=== PATIENT | male | born 1970 | race Caucasian/White ===

== ENCOUNTER 2016-08-05 05:47 | Day surgery (SDC) | payer OTHER ==
[~2016-08-05 05:47] MED LIST: ceFAZolin 3 GM in D5W 100 ML IV ONE
[2016-08-05] MEDS ORDERED: LIDOCAINE 1% 5 ML SDV ONE (06:23)
[2016-08-05] MEDS ORDERED: BUPIVACAINE/EPI 0.25% 30 ML SDV ONE (07:00)
[2016-08-05] MEDS ORDERED: fentaNYL 100 MCG/2 ML INJ ONE (07:13)
[2016-08-05] MEDS ORDERED: PROPOFOL/EMULSION 500 MG/50 ML BOTTLE IV ONE (07:13)
[2016-08-05] MEDS ORDERED: LIDOCAINE 2% JELLY 5 ML TUBE ONE (07:14)
[2016-08-05] MEDS ORDERED: MIDAZOLAM 2 MG/2 ML VIAL ONE (07:16)
[2016-08-05] MEDS ORDERED: LIDOCAINE 2% 5 ML SDV ONE (07:19)
[2016-08-05] MEDS ORDERED: LIDOCAINE 2% 100 MG/5 ML SYR IVP ONE (07:27)
[2016-08-05] MEDS ORDERED: DEXAMETHASONE 4 MG/ML VIAL ONE ×2 (07:40)
[2016-08-05] MEDS ORDERED: ONDANSETRON 4 MG/2 ML VIAL ONE (07:40)
[2016-08-05] MEDS ORDERED: ceFAZolin 3 GM in D5W 100 ML IV ONE (08:00)
[2016-08-05] MEDS ORDERED: PROPOFOL 200 MG/20 ML VIAL ONE (08:11)
[2016-08-05] MEDS ORDERED: OXYCODONE/APAP 5/325 TAB ONE (08:58)
--- NOTE | 2016-08-05 09:30 | GOP ---
DATE OF OPERATION: 08/05/2016 SURGEON: Leonard Casas MD MACHINE FEATHEREDGER AND REDUCER: Corey Beasley. ANESTHESIA: General. ANESTHESIOLOGIST: Dr. Zambrano. PREOPERATIVE DIAGNOSIS: 1. Medical meniscus tear, right knee. 2. Patellofemoral chondromalacia, right knee. POSTOPERATIVE DIAGNOSIS: 1. Medical meniscus tear, right knee. 2. Patellofemoral chondromalacia, right knee. PROCEDURE PERFORMED: 1. Right knee arthroscopy with partial medial meniscectomy. 2. Patellofemoral chondroplasty, right knee. FINDINGS: INDICATIONS: This is a 45-year-old male who injured his knee resulting in the above diagnosis. He has failed nonoperative treatment, and is being admitted for surgical care. DESCRIPTION OF PROCEDURE: After an adequate general anesthetic was obtained, exam under anesthesia revealed stable Zohra. There was no varus, valgus or posterolateral laxity present. Pivot shift stable. The patient's right lower extremity was placed in the leg holding device with adequate padding, and was prepped and draped in the usual sterile fashion. The limb was exsanguinated with the Esmarch, a nd the tourniquet elevated to 300 mmHg pressure. The standard superolateral, anteromedial and anterolateral arthroscopic portals were established wit h an 11 blade. A 4 mm 30-degree arthroscope was introduced through the anterolateral portal, and a systematic examination of the knee was carried out. Suprapatellar pouch, medial and lateral gutters did reveal moderate synovitis. There were loose articular cartilage fragments floating freely in t he joint. These were irrigated free. The patella articular surface revealed diffuse, shaggy grade 3 chondromalacia. A chondroplasty was performed, smoothing the loose articular cartilage down to stable cartilage. The most significant pathology was very extensive deep grade 3 and occasional patchy grade 4 chondro malacia involving virtually the entire femoral trochlea. Loose delaminating cartilage was debrided down to stable cartilage using a small shaver. The ACL and PCL were normal. The lateral compartment was entered. The lateral articular surfaces and the lateral meniscus were n ormal. The medial compartment was entered. There was grade 2-3 chondromalacia on the weight bearing surfac e of the medial femoral condyle. Delaminating cartilage was smoothed down to stable cartilage with a small shaver. The tibial plateau revealed grade 1 softening. There was a small tear at the posterior horn of the medial meniscus near the root. This did not maureen ear to be a meniscal root attachment. However, this was more thoroughly evaluated by placing a 70 d egree arthroscope in the posteromedial compartment. A very excellent visualization of the meniscal root revealed there was no detachment and only a small radial tear in the avascular zone. The 70 de gree scope was introduced in the posterolateral compartment confirming the anterior findings. The 30-degree scope was reintroduced in the medial compartment, and a partial medial meniscectomy wa s carried out, resecting this back to a stable, 3-4 mm rim. The final rim was contoured and balance d with a small shaver. The knee was irrigated until clear. The portals were closed using interrupted 3-0 nylon sutures. 3 0 cc of 0.25% Marcaine injected intra-articularly. Sterile dressings were applied, followed by an Miguelito wrap. The tourniquet was deflated. There were no complications. The patient tolerated the procedure well, and returned to the recovery room in stable condition. /[id number]/MODL
== END 2016-08-05 10:15 | disposition home or self-care (01) ==
LOC: FSGY 05:47
PROVIDERS: ATTEND Orthopaedic Surgery Sports Medicine
PROC: 0SBC4ZZ Excision of Right Knee Joint, Percutaneous Endoscopic Approach (ICD-10-PCS; principal; 2016-08-05 07:15)
DX: S83.241A Other tear of medial meniscus, current injury, right knee, initial encounter (principal); M22.41 Chondromalacia patellae, right knee; X50.0XXA Overexertion from strenuous movement or load, initial encounter; Y92.9 Unspecified place or not applicable
CPT/HCPCS: J0690; J1100; J2001; J2250; J2405; J2704; J3010

== ENCOUNTER 2016-08-13 08:55 | Emergency (ER) | payer OTHER ==
--- NOTE | 2016-08-13 09:02 | UCPHY ---
H & P Patient Type: Established HPI/ROS: HPI Shortness of breath. 46-year-old male. Comes downstairs to urgent care from Dr. James is office upstairs. Patient is status post knee surgery 8 days ago, last . He complained to her about shortness of breath. More with exertion that seems to be worse since his surgery. She is sending him downstairs to us for him to be evaluated for possible PE. The patient denies any extremity pain significant extremity swelling. ROS: Constitutional: No fever, no chills. No weakness. Eyes: No discharge. No changes in vision. ENT: No sore throat. No nasal congestion or rhinorrhea. Respiratory: No cough. As above. Cardiac: No chest pain, no palpitations. Gastrointestinal: No abdominal pain, no vomiting, no diarrhea. Genitourinary: No hematuria. No dysuria or increased frequency with urination. Musculoskeletal: No back pain. No neck pain. No myalgias or arthralgias. Skin: No rashes. Neurological: No headache. No focal weakness or altered sensation. Past medical history: Meniscus repair to right knee a week ago last . Sleep apnea, uses CPAP, hypertension which she is not medicated for currently. Morbid obesity. Social history: Here by himself. Nonsmoker. Physical Exam: General Appearance: Alert, no distress. Morbidly obese habitus. This patient is responding to questions appropriately and in full sentences. This patient appears well-hydrated and well-nourished. Eyes: Pupils equal and round no pallor or injection. No lid edema, erythema or injection. Right lower extremity exam: No asymmetric swelling. Surgical incision is clean dry and intact and without evidence of infection. No calf tenderness or palpable cords. Negative Homans sign. Right lower extremity is neurovascularly intact. Respiratory: There are no retractions, lungs are clear to auscultation with good air movement bilaterally. Cardiovascular: Regular rate and rhythm. No murmur. Gastrointestinal: Obese habitus. Abdomen is soft and nontender, no masses, bowel sounds normal. No focal tenderness at McBurney's point. No Martinez sign. Neurological: Motor sensory function is grossly intact. Cranial nerves are normal. Gait is normal. Skin: Warm and dry, no rashes. Musculoskeletal: Neck is supple and nontender. Extremities are symmetrical. All joints range without pain or impingement. Psychiatric: No agitation. No depression. Database: EKG: EKG time is 10:45 a.m.; EKG shows a narrow complex normal sinus rhythm with a ventricular rate of 60. The DC, QRS, QT intervals are within normal limits. There are no ST-T wave changes indicative of ischemic or injury pattern. No evidence of right heart strain. Interpreted by me. Imaging: Right lower extremity ultrasound: Negative for DVT. Results were discussed with staff radiologist Dr. Leoncio Beltrán. Chest x-ray PA and lateral; the cardiac mediastinal silhouette is unremarkable. No evidence of infiltrate or pneumothorax. No acute cardiopulmonary disease process noted. Interpreted by me. Procedures: Emergency department course: IV placed. Vital signs reviewed. He is 97% on room air. Mildly hypertensive. Vital signs otherwise unremarkable. He was placed on a monitor. EKG and chest x-ray obtained. Plan will be to check a D-dimer as well as the right lower extremity ultrasound. These are negative will not pursue workup for pulmonary embolism further. Standard cardiac workup to be obtained. 10:20 a.m., patient currently getting ultrasound. 10:35 a.m., patient re-evaluated. Resting comfortably at this time. Results of his diagnostic workup discussed with him. Differential diagnosis reviewed. Shortness of breath likely secondary to a reactive airway disease possible. His workup at urgent care has been reassuring. He feels comfortable going home and I feel he is safe for discharge. I will refer him back to Dr. James for follow-up. I spoke with Dr. James regarding the patient's evaluation here at urgent care and discussed the results of his diagnostic testing. She will follow up with him on Tuesday for re-evaluation. I also discussed with him follow-up with a rectifier operator at [facility]. Return to Urgent Care/ emergency department precautions were discussed with the patient. All of his questions were answered. He was discharged in good condition. Differential Diagnosis: The differential diagnosis on this patient includes but is not limited to pneumonia, congestive heart failure, reactive airway disease, pulmonary embolism. This represents a partial list of diagnoses considered. These considerations are based on history, physical exam, past history, reassessment and diagnostic testing. Smoking Status: Never smoked Constitutional: Initial Vital Signs Temperature (C) 36.7 C 08/13/16 09:00 Heart Rate 65 08/13/16 09:00 Respiratory Rate 18 08/13/16 09:00 Blood Pressure 146/101 H 08/13/16 09:00 O2 Sat (%) 97 08/13/16 09:00 O2 Delivery Mode Room Air Allergies/Adverse Reactions: Penicillins Allergy (Verified 08/03/16 10:48) Home Medications: Medication Instructions Recorded NK [No Known Home Meds] 08/03/16 Medical Decision Making - Data Points Laboratory Results: Laboratory Results 08/13/16 09:22 08/13/16 09:22 Medications Given: Discontinued Medications Sodium Chloride (Ns) 500 mls @ 0 mls/hr IV ONCE ONE PRN Reason: As Directed Stop: 08/13/16 09:06 Last Admin: 08/13/16 09:15 Dose: 500 mls Departure - Departure Disposition: Home, Routine, Self-Care Clinical Impression: Dyspnea Condition: Good Instructions: Dyspnea (ED) Additional Instructions: Read and follow provided instructions. Follow-up with your primary care physician in 1-2 days for re-evaluation. I spoke with Dr. Garcia and is regarding her workup here today and her test results. You should also follow up with Cardiology, Dr. Crocker, or 1 of his partners at [facility] next week for re-evaluation. Avoid any strenuous activity until you have been cleared by Cardiology. Continue your medications as prescribed. Return to the emergency department for worsening shortness of breath, chest pain , fever or other serious concerns. Referrals: NONE *PRIMARY CARE P,. [Primary Care Provider] - As per Instructions Abdoulaye Crocker MD [Medical Doctor] - As per Instructions - PQRS PQRS Measurement: Not applicable.
[2016-08-13] MEDS ORDERED: NS 500 ML IV ONE (09:05)
[2016-08-13 09:13] VITALS: TEMP 98.1
[2016-08-13 09:28] LABS: % IMMATURE GRANULYOCYTES 0.4 % (0.0-1.1); ABSOLUTE IMMATURE GRANULOCYTES 0.03 10^3/uL (0.00-0.10); ADD DIFF? NO; ADD MORPH? NO; ADD SCAN? NO; ATYPICAL LYMPHOCYTE FLAG 0 (0-99); FRAGMENT RBC FLAG 0 (0-99); HEMATOCRIT 47.8 % (40.0-51.0); HEMOGLOBIN 16.5 g/dL (13.7-17.5); LEFT SHIFT FLG 0 (0-99); LIPEMIA HEMOLYSIS FLAG 90 (0-99); MEAN CELL HEMOGLOBIN 30.2 pg (27.9-34.1); MEAN CELL HEMOGLOBIN CONCENTR. 34.5 g/dL (32.4-36.7); MEAN CELL VOLUME 87.5 fL (81.5-99.8); MEAN PLATELET VOLUME 9.7 fL (8.7-11.7); PLATELET CLUMPS FLAG 0 (0-99); PLATELET COUNT 243 10^3/uL (150-400); RED BLOOD CELL COUNT 5.46 10^6/uL (4.40-6.38); RED CELL DISTRIBUTION WIDTH 12.5 % (11.5-15.2)
[2016-08-13 09:44] LABS: APTT 32.9 SEC (23.0-38.0); INR 1.08 (0.83-1.16); PROTIME(PATIENT) 13.7 SEC (12.0-15.0)
[2016-08-13 09:46] LABS: ANION GAP 14 mEq/L (8-16); CALCIUM 9.7 mg/dL (8.5-10.4); CARBON DIOXIDE 25 mEq/l (22-31); CHLORIDE 102 mEq/L (97-110); CREATININE 0.9 mg/dL (0.7-1.3); GLOMERULAR FILTRATION RATE > 60; GLUCOSE 98 mg/dL (70-100); POTASSIUM 4.4 mEq/L (3.5-5.2); SODIUM 141 mEq/L (134-144)
[2016-08-13 10:00] LABS: TROPONIN I < 0.012 ng/mL (0-0.034)
--- NOTE | 2016-08-13 10:47 | CPEKG ---
Heart Rate: 60 RR Interval: 1000 P-R Interval: 180 QRSD Interval: 96 QT Interval: 428 QTC Interval: 428 P [place]: 28 QRS [place]: 26 T Wave [place]: 26 EKG Severity - NORMAL ECG - EKG Impression: SINUS RHYTHM Electronically Signed By: Pancho Torre 13-Aug-2016 15:44:01
[2016-08-13 15:15] VITALS: BP 141/91; PULSE 68; RESP 20; O2SAT 93
== END 2016-08-13 11:03 | disposition home or self-care (01) ==
LOC: CED 08:55
DX: R06.00 Dyspnea, unspecified (principal); Z98.890 Other specified postprocedural states
CPT/HCPCS: 71020-PO; 80048-PO; 83880-PO; 84484-PO; 85025-PO; 85378-PO; 85610-PO; 85730-PO; 93971-PO; 96360-PO; G0463-PO